=== PATIENT | male | born 1975 | race Caucasian/White ===

== ENCOUNTER 2017-01-31 10:13 | Emergency (ER) | payer BC ==
[2017-01-31] MEDS ORDERED: PROVENTIL 2.5 MG/3 ML NEB IH ONE ×2 (10:48→11:09)
[2017-01-31 11:06] LABS: BASOPHIL % 0.2 % (0.0-0.4); Eosinophil % 0.6 % (0.00-5.0); Granulocytes % 84.3 % (36.0-66.0); Lymphocytes % 4.7 % (24.0-44.0); Mean Cell Volume 92.8 fl (78-100); Mean Corpuscular Hemoglobin 31.4 pg (26-32); Mean Platelet Volume 10.1 fl (6-9.5); Monocytes % 10.2 % (0.0-12.0); Platelet Count 164 K/mm3 (150-450); Red Blood Count 5.39 M/mm3 (4.1-5.6); Red Cell Distribution Width 12.9 % (11.5-14.0); White Blood Count 9.3 K/mm3 (4.0-10.5)
--- NOTE | 2017-01-31 11:12 | ERPHSYRPT ---
- History of Present Illness Time Seen by Provider: 01/31/17 10:19 Source: patient, family () Patient Subjective Stated Complaint: PT REPORTS SINUS PRESSURE BEGINNING ON WED- STATES THAT THIS MORNING HE WOKE UP WITH A PRODUCTIVE COUGH BLOOD TINGED SPUTUM- BRIGHT RED-DENIES BODY ACHES OR FEVER Triage Nursing Assessment: PT FLUSHED WARM ET DRY-A & O X 3-RESP NONLABORED- LUNGS DIMINISHED ON RIGHT-NO COUGH NOTED DURING TRIAGE Physician History: CC: cough Hx: 41 y/o patient of Dr Garcia with hx of sarcoidosis mostly dormant in the past 10 years. He has headache, cough, mylagias, low grade subjective fever or chills for the past 3 days. Worse cough with yelllow phlegm that is now rust colored. Not particularly short of breath. Nonsmoker. 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 Allergies/Adverse Reactions: No Known Drug Allergies Allergy (Unverified 01/31/17 10:23) Home Medications: Losartan/Hydrochlorothiazide [Losartan-Hctz 100-25 mg Tab] 1 each PO DAILY 01/31 [History] Hx Tetanus, Diphtheria Vaccination/Date Given: Yes (2016) Hx Influenza Vaccination/Date Given: No Hx Pneumococcal Vaccination/Date Given: No Immunizations Up to Date: Yes - Review of Systems Constitutional: Fever, Chills, Malaise Eyes: No Symptoms Ears, Nose, & Throat: No Symptoms Respiratory: Cough, No Dyspnea Cardiac: No Chest Pain Abdominal/Gastrointestinal: No Abdominal Pain, No Nausea, No Vomiting Skin: No Rash Neurological: No Headache All Other Systems: Reviewed and Negative - Past Medical History Pertinent Past Medical History: Yes Cardiac History: Hypertension Respiratory History: Other Other Medical History: Sarcoidosis - Past Surgical History Past Surgical History: Yes - Social History Smoking Status: Never smoker Exposure to second hand smoke: No Drug Use: none Patient Lives Alone: No - Nursing Vital Signs Nursing Vital Signs: Initial Vital Signs Temperature 101.4 F Temperature Source Oral Pulse Rate 99 Respiratory Rate 18 Blood Pressure [] 147/87 Pain Intensity 0 - Physical Exam General Appearance: alert Eye Exam: PERRL/EOMI Ears, Nose, Throat Exam: normal ENT inspection, moist mucous membranes Neck Exam: normal inspection, non-tender, supple Respiratory Exam: rhonchi, wheezing, No respiratory distress Cardiovascular Exam: regular rate/rhythm, No murmur Gastrointestinal/Abdomen Exam: soft, No tenderness, No distention Extremity Exam: normal range of motion, No calf tenderness, No pedal edema Neurologic Exam: alert, oriented x 3, cooperative, sensation nml, No motor deficits Skin Exam: warm, dry, No rash SpO2 Interpretation: normal SpO2: 98 Oxygen Delivery: Room Air - Course Nursing assessment & vital signs reviewed: Yes - Radiology Exams cxr X-ray Interpretation: Teleradiologist Report (bilateral lung opacities which could indicate pneumonia) Ordered Tests: Active Orders 24 hr Category Date Time Status IV Insertion STAT Care 01/31/17 10:50 Active CHEST 2 VIEWS (PA AND LAT) Stat Exams 01/31/17 10:47 Ordered CBC W DIFF Stat Lab 01/31/17 10:57 Completed CMP Stat Lab 01/31/17 10:57 Completed Manual Differential NC Stat Lab 01/31/17 10:57 Completed Respiratory Nebulizer STAT RT 01/31/17 11:14 Completed Medication Summary Discontinued Medications Generic Name Dose Route Start Last Admin Trade Name Freq PRN Reason Stop Dose Admin Acetaminophen 650 mg 01/31/17 11:30 01/31/17 11:34 Tylenol 325 Mg PO 01/31/17 11:31 650 mg STAT ONE Administration Acetaminophen Confirm 01/31/17 11:32 Tylenol 325 Mg Administered 01/31/17 11:33 Dose 650 mg .ROUTE .STK-MED ONE Albuterol Sulfate 2.5 mg 01/31/17 10:48 01/31/17 11:10 Proventil 2.5 Mg/3 Ml Neb IH 01/31/17 10:49 2.5 mg STAT ONE Administration Albuterol Sulfate Confirm 01/31/17 11:09 Proventil 2.5 Mg/3 Ml Neb Administered 01/31/17 11:10 Dose 2.5 mg IH .STK-MED ONE Lab/Rad Data: Laboratory Result Diagrams 01/31/17 10:57 01/31/17 10:57 Laboratory Results 01/31/17 01/31/17 Range/Units 10:57 10:57 WBC 9.3 (4.0-10.5) K/mm3 RBC 5.39 (4.1-5.6) M/mm3 Hgb 16.9 (12.5-18.0) gm/dl Hct 50.0 (42-50) % MCV 92.8 (78-100) fl MCH 31.4 (26-32) pg MCHC 33.8 (32-36) g/dl RDW 12.9 (11.5-14.0) % Plt Count 164 (150-450) K/mm3 MPV 10.1 H (6-9.5) fl Gran % 84.3 H (36.0-66.0) % Lymphocytes % 4.7 L (24.0-44.0) % Monocytes % 10.2 (0.0-12.0) % Eosinophils % 0.6 (0.00-5.0) % Basophils % 0.2 (0.0-0.4) % Basophils # 0.02 (0-0.4) Sodium 135 L (136-145) mEq/L Potassium 4.0 (3.5-5.1) mEq/L Chloride 98 (98-107) mEq/L Carbon Dioxide 31.5 (21-32) mEq/L Anion Gap 9.0 (5-15) MEQ/L BUN 12 (9-20) mg/dL Creatinine 1.38 H (0.55-1.30) mg/dl Estimated GFR > 60 ML/MIN Glucose 104 (70-110) MG/DL Calcium 8.7 (8.5-10.1) mg/dL Total Bilirubin 0.9 (0.2-1.0) mg/dL AST 23 (15-37) U/L ALT 37 (12-78) U/L Alkaline Phosphatase 102 (46-116) U/L Serum Total Protein 7.7 (6.4-8.2) gm/dL Albumin 3.5 (3.4-5.0) g/dL - Progress Progress Note: 01/31/17 11:14 Pt stable. Will Rx high dose amoxil and azithromycin as well as steroids. He plans to follow up with Dr Garcia. Rx alb I. Inst given. Counseled pt/family regarding: lab results, diagnosis, need for follow-up, rad results - Departure Time of Disposition: 11:47 Departure Disposition: Home Clinical Impression: Community acquired pneumonia, Sarcoidosis Condition: Fair Critical Care Time: No Referrals: ANTONIETTA GARCIA MD [Primary Care Provider] - Instructions: Pneumonia -- Adult Additional Instructions: Rx amoxil. Rx azithromycin. Rx prednisone. Rx albuterol MDI. Follow up next week with Dr Garcia. Prescriptions: Albuterol Sulfate [Albuterol Sulfate Hfa] 2 puff IH Q4-6HPRN PRN #1 [email or web address] PRN Reason: cough or wheeze Amoxicillin [Amoxil] 2 cap PO TID #42 capsule Azithromycin [Zithromax] 0 tab PO UD #6 tablet Prednisone 10 mg [Deltasone 10 mg] 0 mg PO UD #32 tablet
[2017-01-31 11:29] LABS: ALBUMIN 3.5 g/dL (3.4-5.0); ALKALINE PHOSPHATASE 102 U/L (46-116); BILIRUBIN,TOTAL 0.9 mg/dL (0.2-1.0); BLOOD UREA NITROGEN 12 mg/dL (9-20); CHLORIDE 98 mEq/L (98-107); Carbon Dioxide 31.5 mEq/L (21-32); Glucose 104 MG/DL (70-110); SGOT/AST 23 U/L (15-37); SGPT/ALT 37 U/L (12-78); SODIUM 135 mEq/L (136-145); Total Protein 7.7 gm/dL (6.4-8.2)
[2017-01-31] MEDS ORDERED: TYLENOL 325 MG PO ONE (11:30)
[2017-01-31] MEDS ORDERED: TYLENOL 325 MG ONE (11:32)
[2017-01-31 11:56] VITALS: BP 139/84; PULSE 116; O2SAT 96
[2017-01-31 16:06] LABS: BAND 2 % (0.0-2.0); Basophil 2 % (0.0-1.0); Platelet Estimate NORMAL (NORMAL); Total Cells Counted 100
--- NOTE | 2017-01-31 21:10 | XRAY ---
Indication: Cough. Comparison: September 13, 2013. PA/lateral chest demonstrates new left upper lobe infiltrate with stable right perihilar atelectasis/scarring. No consolidation or large effusion. Heart is not enlarged. Bony thorax intact again with minimal degenerative changes. Impression: New left upper lobe pneumonia. Stable right perihilar atelectasis/scarring. Comment: Preliminary interpretation was made by [facility]. No discrepancy.
== END 2017-01-31 11:57 | disposition home or self-care (01) ==
LOC: ED 10:13
DX: J18.9 Pneumonia, unspecified organism (principal); D86.9 Sarcoidosis, unspecified
CPT/HCPCS: 36000; 36415; 71020; 80053; 85025; 94640; 99284; A9270-GY